=== PATIENT | male | born 1985 | race Two or more races ===

== ENCOUNTER 2022-03-28 11:04 | Emergency (ER) | payer OTHER ==
[~2022-03-28] VITALS: Ht 180.3 cm; Wt 90.7 kg
== END 2022-03-28 14:06 | disposition home or self-care (01) ==
LOC: ER 11:04
DX: S09.90XA Unspecified injury of head, initial encounter (principal); W22.8XXA Striking against or struck by other objects, initial encounter; Y93.9 Activity, unspecified; Y92.89 Other specified places as the place of occurrence of the external cause; I10 Essential (primary) hypertension